=== PATIENT | female | born 1970 | race Caucasian/White ===

== ENCOUNTER 2020-01-14 07:13 | Day surgery (SDC) | payer OTHER ==
[2020-01-14 07:33] LABS: Specific Gravity 1.015 (1.005-1.030)
[2020-01-14] MEDS ORDERED: Ringers Lactate 1,000 ML IV ONE (07:45)
[2020-01-14 08:23] VITALS: BP 111/58; TEMP 98.5; O2SAT 98
== END 2020-01-14 08:45 | disposition home or self-care (01) ==
LOC: OR 07:13
PROVIDERS: ATTEND Surgery
DX: Z12.11 Encounter for screening for malignant neoplasm of colon (principal); Z53.8 Procedure and treatment not carried out for other reasons; Z33.1 Pregnant state, incidental
CPT/HCPCS: 36415; 84703; 81025; U0002; J7120

== ENCOUNTER 2020-02-25 07:04 | Day surgery (SDC) | payer OTHER ==
[2020-02-25] MEDS ORDERED: Ringers Lactate 1,000 ML IV ONE (07:36)
[2020-02-25] MEDS ORDERED: propofoL 200 MG/20 ML VIAL IV ONE ×3 (09:29→09:59)
[2020-02-25] MEDS ORDERED: LIDOCAINE 1% MPF 5 ML VIAL ONE (09:29)
--- NOTE | 2020-02-25 09:55 | ENDO RPT ---
[address], [address] COLONOSCOPY PROCEDURE REPORT EXAM DATE: 02/25/2020 PATIENT NAME: Diana Fajardo MR #: [id number] BIRTHDATE: 1970 ATTENDING: Iam Winston DR STATUS: outpatient PHARMACY CLERK: Mundo Dixon and Avani Hooks RN INDICATIONS: The patient is a 49 yr old Female here for a colonoscopy due to colon cancer screening PROCEDURE PERFORMED: Colonoscopy with biopsy - cold polypectomy MEDICATIONS: Per Anesthesia. ESTIMATED BLOOD LOSS: None CONSENT: The patient understands the risks and benefits of the procedure and understands that these risks include, but are not limited to: sedation, allergic reaction, infection, perforation and/or bleeding. Alternative means of evaluation and treatment include, among others: physical exam, x-rays, and/or surgical intervention. The patient elects to proceed with this endoscopic procedure. DESCRIPTION OF PROCEDURE: During intra-op preparation period all mechanical medical equipment was checked for proper function. Hand hygiene and appropriate measures for infection prevention was taken. Procedure, possible complications, alternatives including, but not limited to possibility of bleeding, perforation, tear, infection, sepsis, need for surgery, need for blood transfusion, were explained to the patient. After the risks, benefits and alternatives of the procedure were thoroughly explained, Informed consent was verified, confirmed and timeout was successfully executed by the treatment team. The patient was placed in the left lateral position. A digital rectal exam was performed and revealed internal hemorrhoids. After appropriate level of anesthesia, the scope was passed. The EC-[id number] ([id number]) endoscope was introduced through the anus and advanced to the cecum, which was identified by both the appendix and ileocecal valve. The quality of the prep was fair. The instrument was then slowly withdrawn as the colon was fully examined. Scope withdrawal time was 12 minutes. COLON FINDINGS: There was mild diverticulosis noted in the left colon with associated inflammatory changes. No bleeding was noted from the diverticulosis. A few small smooth sessile polyps, ranging between 3-5mm in size, with friable surfaces were found in the rectum. A polypectomy was performed with a cold snare. The resection was complete, the polyp tissue was completely retrieved and sent to histology. A biopsy was performed using cold forceps of an area of extrinsic compression @ 65 cm from anal verge, the mucosa appeared normal, but about 1/2 lumen was involved, easy to traverse with scope, no inflammatory or other abnormal mucosal appearance on NBI. Sample was obtained and sent to histology with cold forcepts. Small internal hemorrhoids were found. Retroflexed views revealed no abnormalities. The scope was then completely withdrawn from the patient and the procedure terminated. ADVERSE EVENTS: There were no complications. IMPRESSIONS: 1. There was mild diverticulosis noted in the left colon 2. Few small sessile polyps, ranging between 3-5mm in size, were found in the rectum; polypectomy was performed with a cold snare; biopsy was performed using cold forceps 3. Small internal hemorrhoids RECOMMENDATIONS: 1. avoid NSAIDS for 2 weeks 2. await biopsy results 3. follow-up: office 2 week(s) 4. Monitor for any evidence of rectal bleeding. 5. CT scan 6. yearly hemoquant 7. hemorrhoidal hygiene RECALL: for Colonoscopy, pending biopsy results. Pending CT and biopsy results Iam Winston DR eSigned: Iam Winston DR 02/25/2020 9:54 AM cc: CPT CODES: ICD9 CODES: PATIENT NAME: Diana Fajardo MR#: [id number]
[2020-02-25 10:41] VITALS: TEMP 97.7; O2SAT 100
[2020-02-25 10:42] VITALS: BP 126/80
== END 2020-02-25 10:30 | disposition home or self-care (01) ==
LOC: OR 07:04
PROVIDERS: ATTEND Surgery
PROC: 0DBE8ZX Excision of Large Intestine, Via Natural or Artificial Opening Endoscopic, Diagnostic (ICD-10-PCS; 2020-02-25)
PROC: 0DBP8ZX Excision of Rectum, Via Natural or Artificial Opening Endoscopic, Diagnostic (ICD-10-PCS; principal; 2020-02-25 08:30)
DX: K63.5 Polyp of colon (principal); K62.1 Rectal polyp; Z20.828 Contact with and (suspected) exposure to other viral communicable diseases; F17.210 Nicotine dependence, cigarettes, uncomplicated; K57.30 Diverticulosis of large intestine without perforation or abscess without bleeding; K64.9 Unspecified hemorrhoids
CPT/HCPCS: 88305; 45380; U0002; J2704 ×3; J7120